=== PATIENT | male | born 1970 | race Caucasian/White ===

== ENCOUNTER 2023-10-05 12:54 | Day surgery (SDC) | payer BC, SELFPAY ==
[2023-10-05] VITALS (10 sets, daily range): BP systolic 133–167; BP diastolic 79–94; BMI 31.4
[2023-10-05] MEDS: CELEBREX 200 MG PO (13:22)
[2023-10-05] MEDS: NORMOSOL-R 1000 IV (13:22)
== END 2023-10-05 17:18 | disposition home or self-care (01) ==
LOC: SDS 12:54
PROVIDERS: ATTENDING PHYSICIAN Orthopaedic Surgery; FAMILY PHYSICIAN Family Medicine
DX: S42.021A Displaced fracture of shaft of right clavicle, initial encounter for closed fracture (principal); V86.56XA Driver of dirt bike or motor/cross bike injured in nontraffic accident, initial encounter
CPT/HCPCS: 23515; C1713; 73000; 76000; 93005